=== PATIENT | male | born 1945 | race Caucasian/White ===

== ENCOUNTER 2025-07-29 10:37 | Outpatient (AMB) | payer MEDICARE, OTHER, SELFPAY ==
--- NOTE | 2025-07-29 10:40 | A.OFFVIS_ITS ---
Intake Visit Reasons: 3m Allergies No Known Allergies Allergy (Verified 07/29/25 10:45) Medication List - Last Reconciled 07/29/25 by Abdoulaye Johnson MD acyclovir 200 mg PO TID atorvastatin (Lipitor) 20 mg PO DAILY levothyroxine 175 mcg PO DAILY lisinopril 10 mg PO DAILY metformin 500 mg PO TID pregabalin ER 660 mg PO DAILY HPI Comments Details: 80 yr old man with PHN pain since he developed a right T12- L1 severe case of herpes zoster on 11/11/24 with an extensive rash on his back, right lower abdomen and right upper thigh. The pain level used to be 8/10? for 3-4 times a day and can last 7-8 minutes mostly right L1 area. It is now 0-1/10 and some da ys not at all. He is now able to sleep thru the night. Part of his upper thigh is numb.? He is currently on extended release pregabalin 330 mg twice a day. Review of Systems Const Details: Sleep:? Difficulty getting to sleepdenies.? Difficulty maintaining sleepdenies?.? Urge to move legsdenies.? Teeth grindingdenies.? Shouting or Kicking during sleep denies.? Abnormal behavior during sleepdenies.? Excessive sleepdenies.? Snoring denies.? Daytime sleepinessdenies. ???General/Constitutional:? Change in appetitedenies.? Chillsdenies.? Fatiguedenies.? Feverdenies.? Weight gaindenies.? Weight lossdenies. ???Ophthalmologic:? Blurred visiondenies.? Diminished visual acuitydenies. ???ENT:? Stuffinessdenies.? Decreased hearingdenies.? Dry mouthdenies.? Ear paindenies.? Nosebleeddenies.? Ringing in the earsdenies.? Sinus paindenies.? Sore throat denies.? Swollen glandsdenies. ???Endocrine:? Cold intolerancedenies.? Excessive thirstdenies.? Frequent urinationdenies.? Heat intolerancedenies. ???Respiratory:? Shortness of breathdenies.? Chest paindenies.? Coughdenies. ???Breast:? Breast lumpdenies.? Nipple dischargedenies. ???Cardiovascular:? Chest pain at restdenies.? Chest pain with exertiondenies.? Claudicationdenies .? Dizzinessdenies.? Fluid accumulation in the legsdenies.? Irregular heartbeat denies.? Palpitationsdenies. ???Gastrointestinal:? Abdominal paindenies.? Constipationdenies.? Diarrheadenies.? Difficulty swallowingdenies.? Heartburndenies.? Nauseadenies.? Rectal bleedingdenies. ???Hematology:? Easy bruisingdenies.? Prolonged bleedingdenies. ???Genitourinary:? Frequent urinationdenies.? Urgencydenies.? Incontinencedenies.? Erectile Dysfunctiondenies. ???Musculoskeletal:? Neck paindenies.? Back painadmits.? Muscle achesdenies.? Painful jointsdenies.? Sciaticadenies.? Weaknessdenies. ???Podiatric:? Difficulty walkingdenies.? Foot numbnessdenies. ???Neurologic:? Difficulty swallowingdenies.? Balance difficultydenies.? Coordinationnormal.? Difficulty speakingdenies.? Dizzinessdenies.? Faintingdenies.? Gait abnormality denies.? Headachedenies.? Loss of strengthdenies.? Loss of use of extremity denies.? Low back paindenies.? Memory lossdenies.? Seizuresdenies.? Ticsdenies.? Tingling/Numbnessdenies.? Transient loss of visiondenies.? Tremordenies. ???Psychiatric:? Anxietydenies.? Auditory/visual hallucinationsdenies.? Delusionsdenies.? Depressed mooddenies.? Stressorsdenies.? Substance abusedenies.? Suicidal thoughtsdenies. Physical Exam Neuro Other: Neurological: Abnormal neurological findings:??Extensive pigmented scars of right T12-L1 herpes zoster in the back, lower abdomen, groin? and right upper thigh.?Mental Status:??alert and oriented X 3,?Normal attention, orientation, memory and affect.?Cranial Nerves:??Pupils are equal, round and reactive to light. Fundoscopy shows normal disc bilaterally. External occular muscles are intact. Visual carr are full, no ptosis. Face is symmetrical, no facial weakness or droop. Facial sensations are normal. Tongue protrudes in midline. Palate elevates symmetrically. Shoulder shrugging is normal..?Motor Examination:??Normal muscle tone, bulk and strength,?No atrophy or fasciculations,?No drift of the extended upper extremities,?Deep tendon reflexes are 2+?,?Plantars are flexor?.?Straight Leg Raising:??90 degrees.?Sensory Exam:??Normal light touch, temperature, pinprick, vibration and joint-position sensations?,?Rhomberg sign is absent.?Coordination:??no ataxia,?no titubation,?opzslp-jv-miuj, ysjo-kbbv-xnhw test and rapid alternating movements were normal.?Gait Exam:??Within normal limits.?Cerebellar Signs:??Djrjdh-sc-kvza and qmso-gb-cqyb is normal,?no dysdiadochokinesia?.?Extrapyramidal System:??No tremor, rigidity with normal facial expressions,?No bradykinesia, no bradyphrenia. Normal arm swing and posture. No propulsion or retropulsion.?Speech:??Normal,?no dysphasia or dysarthria..? Mini Mental Status Exam: Level of Consciousness:??Alert.?Orientation:??Knows correct year, month, date, day and season,?Knows correct city, county and state. Knows correct location and floor.?Registration:??Able to register 3 objects.?Attention:??Serial 7's performed accurately.?Recall:??Able to recall 3 out of 3 objects.?Language:??N ormal spontaneous speech, fluency, repetition,naming, comprehension, reading and writing.?Total Score:??30/30.? Assessment & Plan Assessment & Plan (1) Post herpetic neuralgia: Code(s): B02.29 - Other postherpetic nervous system involvement Category: Medical (2) Diabetes mellitus: Code(s): E11.9 - Type 2 diabetes mellitus without complications Category: Medical Plan Taper off Pregabalin over 10 days as instructed. Stop Acyclovir Coding Level of Care Code Est Pt Level 4 (80380) Diagnoses Post herpetic neuralgia B02.29 Diabetes mellitus E11.9
--- OUTSIDE RECORDS SUMMARY | 2025-07-29 14:05 | XMS_ITS | Clinical Summary ---
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 Active coenzyme Q10 (CO Q 10) 100 MG capsule Take 100 mg by mouth. Active dorzolamide-amairani lol (COSOPT) 2-0.5 % ophthalmic solution Administer 1 drop to both eyes 2 times a day. 5 Active levothyroxine (SYNTHROID, LEVOTHROID) 175 MCG tablet Take 175 mcg by mouth. 5 Active lisinopril (PRINIVIL,ZeSTRI L) 10 MG tablet Take 10 mg by mouth. Active LYCOPENE PO Take 1 tablet by mouth. Active Pregabalin ER 330 MG Tablet SR 24 hr Take 1 tablet by mouth 2 times a day. Active metFORMIN (GLUCOPHAGE) 500 MG tablet as directed Orally four a day Active triamcinolone (KENALOG) 0.5 % creamIndications :Insect bite, unspecified site, initial encounter Apply topically 2 (two) times a day. 30 g 5 Active Active Problems No known active problems Encounters Date Type Department Care Team Description 05/10/2025 9:20 AM EDT Office Visit [facility] [address] [place] [address] José Luis Sanchez MD Duncan, Kiersten B, APRN Insect bite, unspecified site, initial encounter (Primary Dx); Cellulitis of skin of back 05/10/2025 Travel from Last 3 Months Social History Tobacco Use Types Packs/Day Years Used Date Smoking Tobacco: Never Assessed Sex and Gender Information Value Date Recorded Sex Assigned at Not on file Legal Sex Male 9:17 AM EDT Gender Identity Not on file Sexual Orientation Not on file Last Filed Vital Signs Vital Sign Reading Time Taken Comments Blood Pressure 125/77 05/10/2025 9:59 AM EDT Pulse 58 05/10/2025 9:59 AM EDT Temperature 37.1 C (98.7 F) 05/10/2025 9:59 AM EDT Respiratory Rate 15 05/10/2025 9:59 AM EDT Oxygen Saturation 98% 05/10/2025 9:59 AM EDT Inhaled Oxygen Concentration - - Weight 104 kg (230 lb) 05/10/2025 9:59 AM EDT Height 185.4 cm (6' 1 ) 05/10/2025 9:59 AM EDT Body Mass Index 30.34 05/10/2025 9:59 AM EDT Plan of Treatment Health Maintenance Due Date Last Done Comments Advance Care Planning 1945 Hepatitis C Virus Screening 1945 DTaP/Tdap/Td Vaccines (1 - Tdap) 1966 Pneumococcal Vaccines 50+ (1 of 1 - PCV) 1997 Zoster (Shingles) Vaccine (1 of 2) 1997 RSV Vaccine 60 years and older and Patients (1 - 1-dose 75+ series) 2022 Influenza Vaccine 06/13/2025 10/13/2024, , 08/13/2022, Additional history exists COVID-19 Vaccine ( season) 2025 08/13/2022, 01/21/2021, 12/30/2020 Hepatitis B Vaccines Aged Out No long er eligible based on patient's age to complete this topic Insurance MEDICARE PART A & B Care Teams National Dedicated Truck Driver Relationship Specialty Start Date End Date Pcp, No PCP - General General Medicine 05/09/25
--- OUTSIDE RECORDS SUMMARY | 2025-07-29 14:05 | XMS_ITS | Encounter Summary ---
Author Organization [facility] Address [address] [place] [address] Phone Care Team Providers Care [employer] Applier Name Role Phone Geoff Cota MD Primary Care Provider U tod Encounter Details Date Type Department Care Team (Late st Contact Info) Description 12/18/2020 Procedure Pass [facility] [address] [place] [place] [address] [place] [address] Social History Tobacco Use Types Packs/Day Years Used Date Smoking Tobacco: Former Cigarettes 1 12 Smokeless Tobacco: Never Alcohol Use Standard Drinks/Week Comments Yes 2 (1 standard drink = 0.6 oz pur e alcohol) Sex and Gender Information Value Date Recorded Sex Assigned at Not on file Legal Sex Male 6:54 PM EST Gender Identity Not on file Sexual Orientation Not on file Occupation Industry Job Start Date Job End Date retired Not on file Not on file Not on file documented as of this encounter Plan of Treatment Not on file documented as of this encounter Visit Diagnoses Not on filedocumented in this encounter Care Teams Bitumastic Applier Relationship Specialty Start Date End Date Geoff Cota MD PCP - General 05/13/14 documented as of this encounter Additional Source Comments The information contained in this document represents components of the legal health record. It is not the complete legal health record.[facility]
--- OUTSIDE RECORDS SUMMARY | 2025-07-29 14:05 | XMS_ITS | Patient Health Record ---
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 Name Role Phone Alfonso Haines Unavailable [phone] Allergies Allergen (clinical drug ingredient) Drug/Non Drug Allergy documented on EMR Reaction Allergy Type Onset Date Status Seasonal (uncoded) Unknown Allergy A ctive Results Component Value Reference Range Notes HEMOGLOBIN A1C (GLYCOHEMOGLO BIN) Reviewed date:04/25/2025 01:22:05 PM Interpretation: Performing Lab: Notes/Report: HEMOGLOBIN A1C % (HH) 7.0 Reason For Referral No Information Medications Medication SIG (Take, Route, Frequency, Duration) Notes Start Date End Date Status Vitamin D 1000 UNIT 1 tablet Orally Once a day; Duration: 30 day(s) Active Extra Depth Orthopedic Shoes (1 Pair) with Customized Heat Molded Multidensity Innersoles (3 Pair) as directed Dx: NIDDM/Polyneuropathy (E11.42), Hammertoe Foot Deformity (M20.41,M20.42), Preulcerative Skin Lesion(s) (L85.1 Active Calcium 600 MG 1 tablet with meals Orally Twice a day; Duration: 30 day(s) Not-Taking Atorvastatin Calcium Active Aspir-81 81 MG 1 tablet Orally Once a day; Duration: 30 day(s) Not-Dereck ing Zolpidem Tartrate No t-Taking Multivitamins as directed Orally Active Lisinopril Active Lipitor 20 MG 1 tablet Orally Once a day; Duration: 30 day(s) Not-Dereck ing Levothyroxine Sodium 200 MCG 1 tablet on an empty stomach in the morning Orally Once a day; Duration: 30 day(s) Active Timolol Maleate Acti ve metFORMIN HCl 500 MG as directed Orally four a day Active Immunizations Vaccine Route Administration Date Status Comme nts Influenza Unknown 09/09/2015 Administered Influenza Unknown 09/08/2016 Administered Influenza Unknown 09/05/2017 Administered Influenza Unknown 08/13/2022 Administered Influenza Unknown 10/13/2024 Administered Pneumococcal Unknown 08/31/2011 Administered COVID-19 Pfizer BioNTech Vaccine Unknown 08/13/2022 Administered 2020,2020 2020,2021 unsure dates Social History Tobacco Use: Social History Observation Description Date Details (start date - stop date) Never Smoker NA - NA Alcohol Screen Question Answer Notes Did you have a drink containing alcohol in the p ast year? No Points 0 Interpretation Negative Tobacco use other than smoking: Question Answer Notes Are you an other tobacco user? No Tobacco Control (Standard) Question Answer Notes Tobacco use: Nonsmoker Additional Findings: Tobacco non-user Current no nsmoker Problems Problem Type SNOMED Code ICD Code Onset Dates Problem Status W/U Status Risk Notes Problem Acquired hammer toe of right foot (2080949792974849 ) Other hammer toe(s) (acquired), right foot (M20.41) Active confirmed Problem Acquired hammer toe of left foot (8961275620391819 ) Other hammer toe(s) (acquired), left foot (M20.42) Active confirmed Problem Polyneuropathy due to type 2 diabetes mellitus (212071316) Type 2 diabetes mellitus with diabetic polyneuropathy (E11.42) Active confirmed Vital Signs Blood pressure diastolic 80 mm Hg 04/25/2025 Height 6 ft 1 in in 04/25/2025 Blood pressure systolic 120 mm Hg 04/25/2025 Weight 230 lbs 04/25/2025 BMI 30.34 kg/m2 04/25/2025 Procedures Procedure Date Ordered Date Performed Result Body Sit e 53554-CWCO SKIN LESIONS, 2 TO 4 04/25/2025 N/A M2958-CRBCAKRX DYSTROPHIC NAILS ANY # 04/25/2025 N/A Encounters Encounter Location Date Provider Diagnosis [facility] [address] [place] [address] 04/25/2025 Alfonso Haines Type 2 diabetes mellitus with diabetic polyneuropathy E11.42 ; Other hammer toe(s) (acquired), right foot M20.41 and Other hammer toe(s) (acquired), left foot M20.42 Assessments Encounter Date Diagnosis (ICD Code) Assessment Notes Treatment Notes Treatment Clinical Notes Section Notes 04/25/2025 Other hammer toe(s) (acquired), right foot (ICD-10 - M20.41) Patient Educated with: DIABETIC FOOT CARE INSTRUCTIONS. pdf (DIABETIC FOOT CARE INSTRUCTIONS. pdf) 04/25/2025 Type 2 diabetes mellitus with diabetic polyneuropathy (ICD-10 - E11.42) 04/25/2025 Other hammer toe(s) (acquired), left foot (ICD-10 - M20.42) Plan Of Treatment Pending Test Test Name Order Date Hemoglobin A1c 05/06/2016 60191-Effd Destruction, 11-2606/22/2021 48739-Yawf Destruction, -04/19/2022 14443-Xuxu Destruction, -01/06/2023 01914-Gftx Destruction, -04/18/2023 66319-KIGM SKIN LESIONS, 2 TO 4 12/15/19 18 26975-KSWW SKIN LESIONS, 2 TO 4 04/23/20 24 67751-IUGD SKIN LESIONS, 2 TO 4 04/25/20 25 J5031-BXNQAMWO DYSTROPHIC NAILS ANY # Q7221-YLCCYEGR DYSTROPHIC NAILS ANY # 28948,S6384-LPD TENDON SHEATH/LIGAMENT 0 06/10/2014 Next Appt Details Provider Name:Alfonso Haines , 08/14/2025 03:30:00 PM, [address], [place] [address], [place], [address], Insurance Providers Payer Name Payer Address Payer Phone Subscriber Number Group Number Insured Name Patient Relationship to Insured Coverage Start Date Coverage End Date Medicare National [facility] [employer] [address] [place] [address] [id number] Daren Eason Self - patient is the insured 2 [address]) [address] [place], [place] [id number] Daren Eason Self - patient is the insured Medical (General) History Medical History History ICD Code Arthritis Back,Hip,and Knee pain Diabetic type ll Glaucoma Thyroid disorder Measles Mumps Chicken pox Joint implants/screws Cholesterol HTN Shingles Surgical History Surgery Date(Month/Year) knee replacement, Right 2007 foot surgery, Posterior Heel, Right 1999 Thumb Surgery 02/2021 prostate biopsy 03/2021 cataract removal 10/2025
--- OUTSIDE RECORDS SUMMARY | 2025-07-29 14:05 | XMS_ITS | Clinical Summary ---
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 4 Active blood-glucose sensor (FreeStyle Valerie 3 Sensor) device 1 Applicator by Does not apply route every 14 days. 4 Active flash glucose scanning reader (FreeStyle Valerie 2 [place]) misc 1 Device by Does not apply route continuous. 2 Active TURMERIC ORAL Take by mouth. A ctive dorzolamide-timolo L (COSOPT) 22.3-6.8 mg/mL ophthalmic solution Administer 1 drop into both eyes 2 (two) times a day. 1 Active vitamin E-safflower oil oil Apply topically. Active B complex tablet Take 1 tablet by mouth 1 (one) time each day. 6 Active KRILL OIL ORAL Take 1 capsule by mouth 1 (one) time each day. Active CHOLECALCIFEROL, VITAMIN D3, ORAL Take by mouth. Active ubidecarenone (COENZYME Q10 ORAL) Take by mouth. 1 tab qd Active azelaic acid (FINACEA) 15 % gel use to area bid Active MULTIVITAMIN ORAL 1 tab daily Active lidocaine (LIDODERM) 5 % patchIndications:H erpes zoster of thigh,Post herpetic neuralgia,Obstruct malika sleep apnea,Primary hypertension,BPH with elevated PSA,Hypothyroidism , unspecified type,Mixed hyperlipidemia Apply 1 patch topically 1 (one) time each day. Apply to painful area 12 hours per day, remove for 12 hours. 30 each 11 5 Active atorvastatin (LIPITOR) 20 mg tablet TAKE 1 TABLET BY MOUTH EVERY DAY 90 tablet 1 5 Active levothyroxine (SYNTHROID, LEVOTHROID) 175 mcg tablet TAKE 1 TABLET BY MOUTH EVERY DAY 90 tablet 3 5 Active valACYclovir (VALTREX) 500 mg tabletIndications: Post herpetic neuralgia Take 1 tab (500 mg) by mouth 2 times 180 tablet 1 5 026 Active carBAMazepine (TEGretol) 200 mg tablet 5 Active lisinopriL (PRINIVIL,ZESTRIL) 10 mg tablet TAKE 1 TABLET BY MOUTH EVERY DAY 90 tablet 1 5 Active pregabalin 330 mg tablet extended release 24 hrIndications:Post herpetic neuralgia Take 1 tablet by mouth 2 (two) times a day. 60 tablet 5 Active Hospital, Clinic, or Other Facility Administered Medication Ordered Dose Route Frequency Start Date End Date Status lidocaine (XYLOCAINE) 1 % injection 0.5 mLIndications:Bilate ral hand pain .5 mL inj Once PRN Procedure 07/11/2025 07/11/2025 Ended lidocaine (XYLOCAINE) 1 % injection 0.5 mLIndications:Bilate ral hand pain .5 mL inj Once PRN Procedure 07/11/2025 07/11/2025 Ended triamcinolone acetonide (KENALOG-40) 40 mg/mL injection 40 mgIndications:Bilate ral hand pain 40 mg IAtc Once PRN Procedure 07/11/2025 07/11/2025 Ended triamcinolone acetonide (KENALOG-40) 40 mg/mL injection 40 mgIndications:Bilate ral hand pain 40 mg IAtc Once PRN Procedure 07/11/2025 07/11/2025 Ended Active Problems Problem Noted Date Diagnosed Date 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 V24, [facility] V28) 03/14/2025 Assessment & Plan (05/26/2025 7:11 AM EDT): -stable Assessment & Plan (03/15/2025 11:40 AM EDT): Orders: Hemoglobin A1c; Future Lipid panel; Future BPH with elevated PSA 11/19/2021 Assessment & Plan (03/15/2025 11:40 AM EDT): -stable Nocturnal hypoxemia 02/10/2021 Obstructive sleep apnea 02/10/2021 Overview (10/07/2024): [facility] Home Sleep Apnea Test: Date 02/02/2021; Wt 245#; BMI 32; LEYDA (AHI) 30, AI 8; HI 21; Unclassified apneas 1; Obstructive apneas 54; Central apneas 1; Mixed apneas 0; hypopneas 128; average oxygen saturation 93% (lowest 61% with saturations <88% for 5% or more of study) - Obstructive Sleep Apnea - severe; mostly hypopneas and obstructive apneas; with sleep related hypoventilation by 2020 home sleep apnea test. Assessment & Plan (03/15/2025 11:40 AM EDT): -referral placed to ENT to perform DISE to establish eligibility for [facility] Orders: CBC and differential; Future Comprehensive metabolic panel; Future Ambulatory referral to Sleep Medicine; Future Ambulatory referral to ENT; Future Insomnia 2019 Hypertension 03/26/2018 Elevated PSA 01/03/2018 Abdominal hernia 02/19/2016 Nodular prostate 10/15/2015 Overview (10/07/2024): Has had biopsy followed by Dr. 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 V24, [facility] V28) 07/27/2011 Benign neoplasm of colon 08/02/2010 Overview (10/07/2024): 5-mm diameter diminutive descending colon polyp removed at colonoscopy 08/02/2010: Tubular adenoma, next colonoscopy indicated 2014. Diverticulitis of colon without hemorrhage 08/02 Overview (10/07/2024): Incidental finding at colonoscopy 08/02/2010. Depression 03/23/2010 Backache 10/10/2006 Overview (10/07/2024): IMO update Hypothyroidism 10/10/2006 Assessment & Plan (03/15/2025 11:40 AM EDT): -stable Orders: Thyroid stimulating hormone with reflex free T4; Future Mixed hyperlipidemia 10/10/2006 Obesity, unspecified 10/10/2006 Encounters Date Type Department Care Team Description 07/11/2025 10:15 AM EDT Consult Orthopedic Surgery - [place] [address] [facility] [address] [place] [address] Kimi Em PA Bilateral hand pain (Primary Dx) 06/19/2025 1:00 PM EDT Office Visit Endocrinology [address] [address] Trish Mark MD Controlled type 2 diabetes mellitus without complication, without long-term current use of insulin ([facility] V24, [facility] V28) (Primary Dx) 06/13/2025 Telephone Adult Medicine [facility] [address] [place] [address] [place]oxanna Moura [place] 05/30/2025 10:30 AM EDT Consult Rehabilitation Medicine - [place] [address] [place] [address] Yanna Red MD Primary osteoarthritis of both first carpometacarpal joints (Primary Dx); Spinal stenosis of lumbar region without neurogenic claudication; Myofascial pain syndrome of lumbar spine 05/23/2025 11:00 AM EDT Office Visit Internal Medicine - [place] [facility] [address] [facility] [address] [place] [phone] Hilton Shin MD Post herpetic neuralgia (Primary Dx); Type 2 diabetes mellitus with diabetic cataract, without long-term current use of insulin ([facility] V24, [facility] V28); Spinal stenosis of lumbar region without neurogenic claudication; Benign paroxysmal positional vertigo due to bilateral vestibular disorder from Last 3 Months Immunizations Name Administration Dates Next Due H1N1 Inj Preservative Free 11/20/2009 Influenza trivalent, 0.5mL ( Fluad) 65yo and older 09/13/2023,08/09/2022,09/01/2021,09/14,08/22/2019,07/31/2018,08/30/2017 ,08/18/2016 Influenza trivalent, 0.5mL, preservative free (Fluarix; FluLaval; Fluzone) ages 6mo and older (Afluria) 3 years and older 08/20/2019,08/05/2008,09/04/2007 Influenza trivalent, with pr eservative (Fluzone; Afluria) 6mo and older 09/09/2015,09/25/2014,08/02/2013,08/01,07/27/2011,08/17/2010,08/11/2009 ,10/10/2006 Pneumococcal conjugate 13 va lent (Prevnar 13, PCV13) 2mo and older 04/15/2015 Pneumococcal polysaccharide 23 valent (Pneumovax 23) 2yo and older 10/11/2012 TD, Adsorbed, Preservative Free 10/10/2006,12/14 Td Tetanus diptheria (Tdvax) 7yo and older 10/10/2006,12/14/1995 Tdap Tetanus diptheria acell ular pertussis (Boostrix; Adacel) 7yo and older 09/02/2016 Zoster Live 10/27/2010 Surgical History Surgery Date Site/Laterality Comments OTHER SURGICAL HISTORY PROCEDURE: HISTORY OTHER; COMMENT: rt knee multiple proceedures OTHER SURGICAL HISTORY PROCEDURE: HISTORY OTHER; COMMENT: 2 arthroscopic left knee surgeries OTHER SURGICAL HISTORY PROCEDURE: HISTORY OTHER; COMMENT: rt achilles surgery dr lovelace TONSILLECTOMY PROCEDURE: HISTORICAL TONSILLECTOMY OTHER SURGICAL HISTORY PROCEDURE: HISTORY OTHER; COMMENT: rt total knee rplacement 2007 COLONOSCOPY 02/12/2004 PROCEDURE: HISTORICAL COLONOSCOPY; COMMENT: Normal OTHER SURGICAL HISTORY 2013 PROCEDURE: HISTORY OTHER; COMMENT: neg prostate bx 2013 COLONOSCOPY 08/11/2015 PROCEDURE: HISTORICAL COLONOSCOPY; COMMENT: 8 mm right colon polyp: Tubular adenoma. COLONOSCOPY 09/30/2020 PROCEDURE: HISTORICAL COLONOSCOPY; COMMENT: Incomplete to the ileocecal valve, possible 3 mm polyp proximal ascending colon. Repeat in 5 years. COLONOSCOPY 08/02/2010 PROCEDURE: HISTORICAL COLONOSCOPY; COMMENT: diverticulosis and diminutive descending colon polyp: tubular adenoma. EYE SURGERY JOINT REPLACEMENT Medical History Medical History Date Comments Mixed hyperlipidemia 10/10/2006 DX:Mixed hy perlipidemia Obesity, unspecified 10/10/2006 DX:Obesity, unspecified Unspecified hypothyroidism 10/10/2006 DX:Un specified hypothyroidism Backache, unspecified 10/10/2006 DX:Backach e, unspecified Impaired fasting glucose 08/05/2008 DX:Impa ired fasting glucose Depression 03/23/2010 DX:Depression Diverticulosis of colon (wit hout mention of hemorrhage) 08/02/2010 DX:Diverticulosis of colon ( without mention of hemorrhage) Benign neoplasm of colon 08/02/2010 DX:Justice gn neoplasm of colon Type II or unspecified type diabetes mellitus without mention of complication, not stated as uncontrolled 07/27/2011 DX:Type II or unspecified ty pe diabetes mellitus without mention of complication, not stated as uncontrolled Glaucoma 10/14/2013 DX:Glaucoma Nodular prostate 10/15/2015 DX:Nodular pros cervantes; COMMENT: Has had biopsy followed by Dr. Zurita Abdominal hernia 02/19/2016 DX:Abdominal he rnia Shingles Anxiety Arthritis Cataract Eczema Hypertension Family History Medical History Relation Name Comments Arthritis Father Haider Duffy Heart disease Father Haider Duffy Stroke Father Haider Duffy Diabetes Father's Sister Meyer Cancer Mother Dominique Eason Colon polyps Mother Dominique Eason younger than 60 yo. Stroke Mother Dominique Eason Hypertension Sister viky st Colon cancer Uncle maternal; > 65 yo. Relation Name Status Comments Brother Alive prostate cancer coronary art stent Father Haider Duffy (Age 82) stroke mi Father's Sister Betsy Mother Dominique Eason (Age 78) stroke Sister viky st Alive Uncle Social History Tobacco Use Types Packs/Day Years Used Date Smoking Tobacco: Former Cigarettes 1.5 14 0 11/21/1965 - 11/13/1979 Smokeless Tobacco: Never Tobacco Cessation:Counseling Given: Not Answered Comments:I haven't touched a cigarette since 11/13/80 Alcohol Use Standard Drinks/Week Comments Not Currently 0 (1 standard drink = 0.6 oz pure alcohol) I might have a social dink once or twice a month Housing Instability Answer Date Recorde d Are you worried that in the next 2 months you may not have stable housing? No 05/19/2025 Food Access & Nutrition Answer Date Rec orded Do you have access to a vari ety of food including fruits and vegetables? Yes 05/19/2025 Access to Healthcare Answer Date Record ed Within the last 3 months, ho w many times did you visit the emergency department for your medical care? 1 05/19/2025 Health Literacy Answer Date Recorded How often do you need to hav e someone help you when you read instructions, pamphlets, or other written material from your doctor or pharmacy? Never 05/19/2025 Caregiver: How often do you need to have someone help you when you read instructions, pamphlets, or other written material from your doctor or pharmacy? Not on file 05/19/2025 Financial Risk Answer Date Recorded How hard is it for you to pa y for the very basics like food, housing, medical care, and air conditioning / heating? Patient declined 05/19/2025 Transportation Answer Date Recorded Has the lack of transportati on kept you from meetings, work, or from getting things needed for daily living? No Has the lack of transportati on kept you from medical appointments or from getting medications? No 05/19/2025 Social Isolation Answer Date Recorded How often do you feel lonely or isolated from those around you? Patient declined 05/19/2025 Food Risk Answer Date Recorded Within the past 12 months we worried whether our food would run out before we got money to buy more. Never true 05/19/2025 Within the past 12 months th e food we bought just didn't last and we didn't have money to get more. Never true 05/19/2025 Dependent Care Answer Date Recorded Do you need help finding or paying for care for your loved ones. For example, children's author or elderly care for an older adult? Patient declined 05/19/2025 Education Answer Date Recorded Do you think completing more education or training, like finishing a GED, going to college, or learning a trade, would be helpful for you? No 05/19/2025 Employment and Income Answer Date Recor ded During the last four weeks, have you been actively looking for work? No 05/19/2025 Living Situation Answer Date Recorded What is your living situation? 0 05/19/2025 Sex and Gender Information Value Date Recorded Sex Assigned at Not on file Legal Sex Male 12:34 AM EST Gender Identity Not on file Sexual Orientation Not on file Obstetrics History Last Filed Vital Signs Vital Sign Reading Time Taken Comments Blood Pressure 126/67 06/19/2025 1:06 PM EDT Pulse 67 06/19/2025 1:06 PM EDT Temperature 35.9 C (96.6 F) 02/21/2025 12:34 PM EDT Respiratory Rate 15 06/19/2025 1:06 PM EDT Oxygen Saturation 99% 05/23/2025 11:27 AM EDT Inhaled Oxygen Concentration - - Weight 107 kg (235 lb 14.3 oz) 07/11/2025 10:13 AM EDT Height 185.4 cm (6' 0.99 ) 07/11/2025 10:13 AM E DT Body Mass Index 31.13 07/11/2025 10:13 AM EDT Plan of Treatment Upcoming Encounters Date Type Department Care Team (Late st Contact Info) Description 08/01/2025 10:30 AM EDT Office Visit Rehabilitation Medicine - [place] [address] [facility] [address] [place] [phone] Yanna Red MD [address] [place] [address] 08/29/2025 10:00 AM EDT Office Visit [facility] - [place] [facility] [address] [place] [phone] Hilton Shin MD [address] [place] [address] Health Maintenance Due Date Last Done Comments Zoster Vaccines (2 of 3) 12/22/2010 10/27/2010 RSV Immunization Adult Patients (1 - 1-dose 75+ series) 2022 Falls Risk Assessment 11/22/2024 11/22/2023 Medicare Annual Wellness Visit 11/22/2024 11/22/2023 COVID-19 Vaccine ( season) 2025 09/14/2024, 09/13/2023, 08/09/2022, Additional history exists Influenza Vaccine (#1) 2025 , 09/14/2024, 09/14/2023, Additional history exists Colorectal Cancer Screening: Colonoscopy 09/30/2025 09/30/2020 Diabetes: Annual Retina Eye Exam 10/21/2025 10/21/2024, 04/24/2024 Diabetes: Blood Sugar Control Test (HGBA1C) 11/20/2025 05/20/2025, 12/02/2024, 08/29/2024, Additional history exists Diabetes: Annual Urine Albumin-Creatinine Ratio (uACR) 12/02/2025 12/02/2024, 08/29/2024 Social Influencers of Health Screening 05/19/2026 05/19/2025 Diabetes: Annual GFR (Glomerular Filtration Rate) 05/20/2026 05/20/2025, 12/02/2024, 08/29/2024, Additional history exists Hypertension/CHF/CAD Annual BMP Blood Test 05/20/2026 05/20/2025, 12/02/2024, 08/29/2024, Additional history exists Diabetes: Annual Foot Exam 06/19/2026 06/19/2025, DTaP,Tdap,and Td Vaccines (5 - Td or Tdap) 09/02/2026 09/02/2016, 10/10/2006, 10/10/2006, Additional history exists Cholesterol Screening (Lipid Panel) 05/20/2030 05/20/2025, 12/02/2024, 08/29/2024, Additional history exists Hepatitis C Screening Completed 04/10/2014 Pneumococcal Vaccine: 50+ Years Completed 04/15/2015, 10/11/2012, 08/31/2011 Depression Screening Completed 05/19/2025, 11/22/19 24 HIB Vaccines Aged Out No longer eligi ble based on patient's age to complete this topic HPV Vaccines Aged Out No longer eligi ble based on patient's age to complete this topic Hepatitis A Vaccines Aged Out No long er eligible based on patient's age to complete this topic Hepatitis B Vaccines Aged Out No long er eligible based on patient's age to complete this topic IPV Vaccines Aged Out No longer eligi ble based on patient's age to complete this topic MMR Vaccines Aged Out No longer eligi ble based on patient's age to complete this topic Meningococcal ACWY Vaccine Aged Out N o longer eligible based on patient's age to complete this topic Meningococcal B Vaccine Aged Out No l onger eligible based on patient's age to complete this topic RSV Immunization Patients Under 20 months Aged Out No longer eligible based on patient's age to complete this topic Varicella Vaccines Aged Out No longer eligible based on patient's age to complete this topic Procedures Procedure Name Priority Date/Time Associated Diagnosis Comments XR HAND 3+ VIEWS BILAT Routine 07/11/2025 10:28 AM EDT Bilateral hand pain MD ARTHROCENTESIS/ASPIRA TION/INJECTION SMALL JOINT/BURSA WO U/S GUIDANCE Routine 07/11/2025 10:15 AM EDT Bilateral hand pain CBC WITH AUTO DIFFERENTIAL Routine 05/20/2025 10:26 AM EDT Obstructive sleep apnea (adult) (pediatric) Fatigue Avitaminosis D Cataract, diabetic (CMS/HCC V24, CMS/HCC V28) Myxedema heart disease COMPREHENSIVE METABOLIC PANEL Routine 05/20/2025 10:26 AM EDT Obstructive sleep apnea (adult) (pediatric) Fatigue Avitaminosis D Cataract, diabetic (CMS/HCC V24, CMS/HCC V28) Myxedema heart disease THYROID STIMULATING HORMONE WITH REFLEX TO FREE T4 AND FREE T3 Routine 05/20/2025 10:26 AM EDT Obstructive sleep apnea (adult) (pediatric) Fatigue Avitaminosis D Cataract, diabetic (CMS/HCC V24, CMS/HCC V28) Myxedema heart disease HEMOGLOBIN A1C Routine 05/20/2025 10:26 AM EDT Obstructive sleep apnea (adult) (pediatric) Fatigue Avitaminosis D Cataract, diabetic (CMS/HCC V24, CMS/HCC V28) Myxedema heart disease LIPID PANEL WITH REFLEX TO DIRECT LDL Routine 05/20/2025 10:26 AM EDT Obstructive sleep apnea (adult) (pediatric) Fatigue Avitaminosis D Cataract, diabetic (CMS/HCC V24, CMS/HCC V28) Myxedema heart disease VITAMIN D 25 HYDROXY Routine 05/20/2025 10:26 AM EDT Obstructive sleep apnea (adult) (pediatric) Fatigue Avitaminosis D Cataract, diabetic (CMS/HCC V24, CMS/HCC V28) Myxedema heart disease VITAMIN B12 AND FOLATE Routine 05/20/2025 10:26 AM EDT Obstructive sleep apnea (adult) (pediatric) Fatigue Avitaminosis D Cataract, diabetic (CMS/HCC V24, CMS/HCC V28) Myxedema heart disease FERRITIN Routine 05/20/2025 10:26 AM EDT Obstructive sleep apnea (adult) (pediatric) Fatigue Avitaminosis D Cataract, diabetic (CMS/HCC V24, CMS/HCC V28) Myxedema heart disease IRON AND TIBC Routine 05/20/2025 10:26 AM EDT Obstructive sleep apnea (adult) (pediatric) Fatigue Avitaminosis D Cataract, diabetic (CMS/HCC V24, CMS/HCC V28) Myxedema heart disease CBC AND DIFFERENTIAL Routine 05/20/2025 10:26 AM EDT Obstructive sleep apnea (adult) (pediatric) Fatigue Avitaminosis D Cataract, diabetic (CMS/HCC V24, CMS/HCC V28) Myxedema heart disease MICROALBUMIN CREATININE URINE RATIO Routine 12/02/2024 2:07 PM EST Herpes zoster of thigh Post herpetic neuralgia Obstructive sleep apnea Primary hypertension BPH with elevated PSA Hypothyroidism, unspecified type Mixed hyperlipidemia DIABETES EYE EXAM Routine 04/24/2024 DIABETES FOOT EXAM Routine 04/23/2024 DEPRESSION SCREENING Routine 11/22/2023 FALLS RISK ASSESSMENT Routine 11/22/2023 COLONOSCOPY Routine 09/30/2020 HEPATITIS C SCREENING Routine 04/10/2014 from Last 3 Months or Most Recently Relevant to Health Maintenance Results * XR Hand 3+ Views bilat (07/11/2025 10:28 AM EDT) Anatomical Region Laterality Modality Upper Extremities, Hand Bilateral Computed Radiography Narrative 07/11/2025 12:35 PM EDT Date of Visit:07/11/2025 Reason for visit: Bilateral hand and thumb pain Views: AP, lateral, oblique bilateral hands Comparison: None Findings: Diffuse osteoarthritis periarticular osteopenia. Moderate bilateral thumb basal joint arthritis with osteophyte formation subchondral bone cyst mild subluxation Impression: Moderate bilateral thumb basal joint arthritis us Kimi CONRAD IMG XR PROCEDURES Final Resul t * MD ARTHROCENTESIS/ASPIRATION/INJECTION SMALL JOINT/BURSA WO U/S GUIDANCE (07/11/2025 10:15 AM EDT) Narrative Kimi Em PA - 07/11/2025 10:15 AM EDT ANAMARIA Gaspar 07/11/2025 12:38 PM Hand / UE Inj/Asp: bilateral thumb CMC for osteoarthritis Details: 25 G needle, dorsal approach Medications (Right): 0.5 mL lidocaine 1 %; 40 mg triamcinolone acetonide 40 mg/mL Medications (Left): 0.5 mL lidocaine 1 %; 40 mg triamcinolone acetonide 40 mg/mL Risks of infection, thinning of the skin and temporary skin discoloration discussed. Discussed risks of temporary increased pain after injection and swelling and mild redness at injection site for couple days. Explained occasionally cortisone injection can cause facial flushing temporarily. Benefits pain management. For postop injection pain ice, Tylenol and/or NSAIDs if patient can take Informed Consent: Laterality: Bilateral Relevant images/test results available and reviewed: yes Health status cleared: Yes Procedure/treatment, purpose, treatment alternatives, risks/potential complications and benefits explained: yes Risk/complications/benefits details: Risks of infection, thinning of the skin and temporary skin discoloration discussed. Discussed risks of temporary increased pain after injection and swelling and mild redness at injection site for couple days. Explained occasionally cortisone injection can cause facial flushing temporarily. Benefits pain management. For postop injection pain ice, Tylenol and/or NSAIDs if patient can take Patient questions answered: yes Patient agrees, verbalizes understanding, and wants to proceed: yes Consent given by: Patient Informed consent discussion completed by Physician/HERRERA with patient: Verbal Pre-procedure timeout performed: yes us Kimi CONRAD IN CLINIC/BEDSIDE ORDERABLES Final Result * Thyroid stimulating hormone with reflex to free t4 and free t3 (05/20/2025 10:26 AM EDT) TSH 1.06 0.40 - 4.00 mcIU/mL LAB CHEMISTRY METHOD 05/20/2025 1:18 PM EDT [facility] Blood Venous blood specimen / Unknown Venipuncture / Unknown 05/20/2025 10:26 AM EDT 05/20/2025 10:26 AM EDT us Hilton Shin MD LAB BLOOD ORDERABLES Final R esult [facility] [address] [place] [address], [place] [phone] * (ABNORMAL) Vitamin B12 and folate (05/20/2025 10:26 AM EDT) Vitamin B-12 818 250 - 900 pcg/mL LAB CHEMISTRY METHOD 05/20/2025 12:36 PM EDT [facility] Folate >20.0(H) 2.8 - 17.0 ng/ml LAB CHEMISTRY METHOD 05/20/2025 12:36 PM [facility] Blood Venous blood specimen / Unknown Venipuncture / Unknown 05/20/2025 10:26 AM EDT 05/20/2025 10:26 AM EDT Hilton Shin MD LAB BLOOD ORDERABLES Final R esult [facility] [address] [place] [address], [place] [phone] * Lipid panel with reflex to direct LDL (05/20/2025 10:26 AM EDT) Cholesterol 147 0 - 200 mg/dL LAB CHEMISTRY METHOD 05/20/2025 12:13 PM [facility] Triglycerides 93 0 - 150 mg/dL LAB CHEMISTRY METHOD 05/20/2025 12:13 PM [facility] HDL 55 >=40 mg/dL LAB CHEMISTRY METHOD 05/20/2025 12:13 PM [facility] LDL Calculated 73 0 - 100 mg/dL LAB CHEMISTRY METHOD 05/20/2025 12:13 PM [facility] VLDL Cholesterol Dominguez 18.6 mg/dL LAB CHEMISTRY METHOD 05/20/2025 12:13 PM [facility] Non HDL Chol. (LDL+VLDL) 92 <145 mg/dL LAB CHEMISTRY METHOD 05/20/2025 12:13 PM [facility] Chol/HDL Ratio 2.7 0.0 - 4.4 LAB CHEMISTRY METHOD 05/20/2025 12:13 PM [facility] Blood Venous blood specimen / Unknown Venipuncture / Unknown 05/20/2025 10:26 AM EDT 05/20/2025 10:26 AM EDT us Hilton Shin MD LAB BLOOD ORDERABLES Final R esult [facility] [address] [place] [address], [place] [phone] * (ABNORMAL) CBC auto differential (05/20/2025 10:26 AM EDT) WBC 4.6(L) 4.8 - 10.8 K/mcL LAB HEMETOLOGY METHOD 05/20/2025 12:33 PM EDT [facility] RBC 3.80(L) 4.50 - 5.50 M/mcL LAB HEMETOLOGY METHOD 05/20/2025 12:33 PM EDT [facility] Hemoglobin 12.2(L) 13.5 - 17.5 g/dL LAB HEMETOLOGY METHOD 05/20/2025 12:33 PM EDT [facility] Hematocrit 36.9(L) 42.0 - 54.0 % LAB HEMETOLOGY METHOD 05/20/2025 12:33 PM EDT [facility] MCV 96.3 79.0 - 98.0 FL LAB HEMETOLOGY METHOD 05/20/2025 12:33 PM EDT [facility] MCH 31.9 27.0 - 32.0 pcg LAB HEMETOLOGY METHOD 05/20/2025 12:33 PM EDT [facility] MCHC 33.1 32.0 - 37.0 g/dL LAB HEMETOLOGY METHOD 05/20/2025 12:33 PM EDT [facility] RDW 13.0 11.0 - 15.0 % LAB HEMETOLOGY METHOD 05/20/2025 12:[facility] Platelets 129(L) 130 - 400 K/mcL LAB HEMETOLOGY METHOD 05/20/2025 12:33 PM EDT [facility] MPV 11.4(H) 7.0 - 11.0 FL LAB HEMETOLOGY METHOD 05/20/2025 12:33 PM EDT [facility] NRBC 0.0 <1.0 % LAB HEMETOLOGY METHOD 05/20/2025 12:33 [facility] NRBC Absolute 0.00 <0.10 K/mcL LAB HEMETOLOGY METHOD 05/20/2025 12:33 PM EDT [facility] Neutrophils Relative 54.8 % LAB HEMETOLOGY METHOD 05/20/2025 12:33 PM EDT [facility] Lymphocytes Relative 31.8 % LAB HEMETOLOGY METHOD 05/20/2025 12:33 PM [facility] Monocytes Relative 8.9 % LAB HEMETOLOGY METHOD 05/20/2025 12:33 PM [facility] Eosinophils Relative 3.2 % LAB HEMETOLOGY METHOD 05/20/2025 12:33 PM [facility] Basophils Relative 0.9 % LAB HEMETOLOGY METHOD 05/20/2025 12:33 PM [facility] Immature Granulocytes Relative 0.4 % LAB HEMETOLOGY METHOD 05/20/2025 12:33 PM [facility] Neutrophils Absolute 2.53 1.50 - 7.00 K/mcL LAB HEMETOLOGY METHOD 05/20/2025 12:33 PM EDT [facility] Lymphocytes Absolute 1.47 1.00 - 5.00 K/mcL LAB HEMETOLOGY METHOD 05/20/2025 12:33 PM EDT [facility] Monocytes Absolute 0.41 0.20 - 1.00 K/mcL LAB HEMETOLOGY METHOD 05/20/2025 12:33 PM [facility] Eosinophils Absolute 0.15 0.00 - 0.50 K/mcL LAB HEMETOLOGY METHOD 05/20/2025 12:33 PM EDT [facility] Basophils Absolute 0.04 0.00 - 0.20 K/[facility] HEMETOLOGY METHOD 05/20/2025 12:33 PM EDT [facility] Immature Granulocytes Absolute 0.02 0.00 - 0.03 K/[facility] LAB HEMETOLOGY METHOD 05/20/2025 12:33 PM EDT [facility] Blood Venous blood specimen / Unknown Venipuncture / Unknown 05/20/2025 10:26 AM EDT 05/20/2025 10:26 AM EDT us Hilton Shin MD LAB BLOOD ORDERABLES Final R esult Performing Organization Address City/[facility]/ZIP Co de Phone Number [facility] [address] [place] [address], [place] [phone] * Iron and TIBC (05/20/2025 10:26 AM EDT) Iron 86 50 - 160 mcg/dL LAB CHEMISTRY METHOD 05/20/2025 12:36 PM EDT [facility] TIBC 284 250 - 450 mcg/dL LAB CHEMISTRY METHOD 05/20/2025 12:36 PM EDT [facility] Iron Saturation 30 20 - 50 % LAB CHEMISTRY METHOD 05/20/2025 12:36 PM EDT [facility] Blood Venous blood specimen / Unknown Venipuncture / Unknown 05/20/2025 10:26 AM EDT 05/20/2025 10:26 AM EDT us Hilton Shin MD LAB BLOOD ORDERABLES Final R esult [facility] [address] [place] [address], [place] [phone] * Vitamin D 25 hydroxy (05/20/2025 10:26 AM EDT) Pathologist [facility] Vit D, 25-Hydroxy 43.9 30.0 - 80.0 ng/mL LAB CHEMISTRY METHOD 05/20/2025 1:18 PM EDT [facility] Blood Venous blood specimen / Unknown Venipuncture / Unknown 05/20/2025 10:26 AM EDT 05/20/2025 10:26 AM EDT us Hilton Shin MD LAB BLOOD ORDERABLES Final R esult Performing Organization Address City/[facility] Co de Phone Number [facility] [address] [place] [address], [place] [phone] * (ABNORMAL) Hemoglobin A1c (05/20/2025 10:26 AM EDT) [facility] Hemoglobin A1C 7.0(H) <6.5 % LAB CHEMISTRY METHOD 05/20/2025 2:15 PM EDT [facility] Mean Bld Glu Estim. 154 mg/dL LAB CHEMISTRY METHOD 05/20/2025 2:15 PM EDT [facility] Blood Venous blood specimen / Unknown Venipuncture / Unknown 05/20/2025 10:26 AM EDT 05/20/2025 10:26 AM EDT us Hilton Shin MD LAB BLOOD ORDERABLES Final R esult [facility] [address] [place] [address], [place] [phone] * Ferritin (05/20/2025 10:26 AM EDT) [facility] Ferritin 92 26 - 388 ng/mL LAB CHEMISTRY METHOD 05/20/2025 12:36 PM EDT [facility] Blood Venous blood specimen / Unknown Venipuncture / Unknown 05/20/2025 10:26 AM EDT 05/20/2025 10:26 AM EDT us Hilton Shin MD LAB BLOOD ORDERABLES Final R esult [facility] [address] [place] [address], * (ABNORMAL) Comprehensive metabolic panel (05/20/2025 10:26 AM EDT) Sodium 139 133 - 145 mmol/L LAB CHEMISTRY METHOD 05/20/2025 12:36 PM T [facility] Potassium 5.2 3.5 - 5.5 mmol/L LAB CHEMISTRY METHOD 05/20/2025 12:36 PM [facility] Chloride 107 96 - 110 mmol/L LAB CHEMISTRY METHOD 05/20/2025 12:36 PM [facility] CO2 30 21 - 32 mmol/L LAB CHEMISTRY METHOD 05/20/2025 12:36 PM [facility] Anion Gap 2(L) 3 - 11 LAB CHEMISTRY METHOD 05/20/2025 12:36 PM [facility] Glucose 145(H) 70 - 100 mg/dL LAB CHEMISTRY METHOD 05/20/2025 12:36 PM [facility] BUN 19 5 - 25 mg/dL LAB CHEMISTRY METHOD 05/20/2025 12:36 PM [facility] Creatinine 0.86 0.70 - 1.30 mg/dL LAB CHEMISTRY METHOD 05/20/2025 12:36 PM [facility] eGFR 89 >=60 mL/min/1. 73m2 LAB CHEMISTRY METHOD 05/20/2025 12:36 PM [facility] Comment:Calculation based on the Chronic Kidney Disease Epidemiology Collaboration (CKD-EPI) equation refit without adjustment for race. BUN/Creatinine Ratio 22.1 LAB CHEMISTRY METHOD 05/20/2025 12:36 PM [facility] Calcium 9.4 8.5 - 10.5 mg/dL LAB CHEMISTRY METHOD 05/20/2025 12:36 PM EDT [facility] AST (SGOT) 13 10 - 42 unit/L LAB CHEMISTRY METHOD 05/20/2025 12:36 PM EDT [facility] ALT (SGPT) 21 10 - 60 unit/L LAB CHEMISTRY METHOD 05/20/2025 12:36 PM EDT [facility] Alkaline Phosphatase 63 42 - 121 unit/L LAB CHEMISTRY METHOD 05/20/2025 12:36 PM EDT [facility] Total Protein 6.9 6.0 - 8.0 g/dL LAB CHEMISTRY METHOD 05/20/2025 12:36 PM EDT [facility] Albumin 4.1 3.2 - 5.0 g/dL LAB CHEMISTRY METHOD 05/20/2025 12:36 PM EDT [facility] Total Bilirubin 0.6 0.0 - 1.4 mg/dL LAB CHEMISTRY METHOD 05/20/2025 12:36 PM EDT [facility] Blood Venous blood specimen / Unknown Venipuncture / Unknown 05/20/2025 10:26 AM EDT 05/20/2025 10:26 AM EDT us Hilton Shin MD LAB BLOOD ORDERABLES Final R esult [facility] [address] [place] [address], * Microalbumin creatinine urine ratio (12/02/2024 2:07 PM EST) Creatinine, Urine 70.0 mg/dL LAB CHEMISTRY METHOD 12/02/2024 5:07 PM EST [facility] Microalb, Ur 13.9 0.0 - 29.0 mg/L LAB CHEMISTRY METHOD 12/02/2024 5:07 PM EST [facility] Microalb/Creat Ratio 20 <30 mg/g creat LAB CHEMISTRY METHOD 12/02/2024 5:07 PM EST [facility] Urine Urine specimen obtained by clean catch procedure / Unknown Non-blood Collection / Unknown 12/02/2024 2:07 PM EST 12/02/2024 2:07 PM EST [facility] LAB URINE ORDERABLES Sherrie l Result [facility] [address] [place] [address], [place] [phone] * Diabetes Eye Exam (04/24/2024) [facility] Diabetes: Annual Retina Eye Exam Abstracted Result [facility] Provider HEALTH MAINTENANCE Final Result * Diabetes Foot Exam (04/23/2024) [facility] Diabetes: Annual Foot Exam Abstracted [facility] Provider HEALTH MAINTENANCE Final Result * Falls Risk Assessment (11/22/2023) [facility] Falls Risk Assessment Abstracted [facility] Provider HEALTH MAINTENANCE Final Result * Depression Screening (11/22/2023) [facility] Depression Screening Abstracted Result [facility] Provider HEALTH MAINTENANCE Final Result * Colonoscopy (09/30/2020) [facility] Colonoscopy Abstracted, Positive Anatomical Region Laterality Modality Other Historical Provider HEALTH MAINTENANCE Final Result * Hepatitis C Screening (04/10/2014) [facility] Hepatitis C Screening Abstracted Historical Provider HEALTH MAINTENANCE Final Result from Last 3 Months or Most Recently Relevant to Health Maintenance Insurance MEDICARE UN[employer]ARE Care Teams Vrt Mechanic Relationship Specialty Start Date End Date Hilton Shin MD [address] [facility] [address] [place] [address] PCP - General Internal Medicine 03/14/25
--- OUTSIDE RECORDS SUMMARY | 2025-07-29 14:05 | XMS_ITS | Encounter Summary ---
Author Organization [facility] Address [address] [place] [id number] Phone Care Team Providers Care Sample Tailor Name Role Phone Geoff Cota MD Primary Care Provider U tod Encounter Details Date Type Department Care Team (Late st Contact Info) Description 01/03/2018 Procedure [facility] [address] [place] [address] Social History Tobacco Use Types Packs/Day Years [...] on filedocumented in this encounter Care Teams Sample Tailor Relationship Specialty Start Date End Date Geoff Cota MD PCP - General 05/13/14 documented as of this encounter Additional Source Comments The information contained in this document represents components of the legal health record. It is not the complete legal health record.[facility]
--- OUTSIDE RECORDS SUMMARY | 2025-07-29 14:05 | XMS_ITS ---
Author Name [facility] Organization Unknown History of Medication Use Medication Directions Dispensed Refills Start Date End Date Stat valACYclovir (VALTREX) 500 mg tablet Take 1 tab (500 mg) by mouth 2 times 05/23/2025 active pregabalin 330 mg tablet extended release 24 hr TAKE 1 TABLET BY MOUTH TWICE A DAY 05/19/2025 active doxycycline (VIBRAMYCIN) 100 MG capsule Take 1 capsule (100 mg total) by mouth 2 (two) times a day. 05/10/2025 active triamcinolone (KENALOG) 0.5 % cream Apply topically 2 (two) times a day. 05/10/2025 active carBAMazepine (TEGretol) 200 mg tablet TAKE 1/2 TAB 3 TIMES A DAY FOR 1 WEEK THEN 1 TAB THREE TIMES A DAY BY MOUTH DIRECTED 30 DAYS 05/06/2025 active dorzolamide-timolol (COSOPT) 2-0.5 % ophthalmic solution Administer 1 drop to both eyes 2 times a day. 05/04/2025 active pregabalin 330 mg tablet extended release 24 hr Take 330 mg by mouth 2 (two) times a day. Max Daily Amount: 660 mg 03/14/2025 active levothyroxine (SYNTHROID, LEVOTHROID) 175 mcg tablet TAKE 1 TABLET BY MOUTH EVERY DAY 02/24/2025 active levothyroxine (SYNTHROID, LEVOTHROID) 175 MCG tablet Take 175 mcg by mouth. 02/24/2025 active pregabalin (LYRICA) 150 mg capsule Take 1 capsule (150 mg total) by mouth 4 (four) times a day. Max Daily Amount: 600 mg 02/21/2025 03/14/2025 aborted cyclobenzaprine (FLEXERIL) 10 mg tablet Take 1 tablet (10 mg total) by mouth at bedtime as needed for muscle spasms. 02/21/2025 active atorvastatin (LIPITOR) 20 mg tablet TAKE 1 TABLET BY MOUTH EVERY DAY 02/17/2025 active Lipitor 20 MG tablet 1 tablet Orally Once a day; Duration: 30 day(s) 02/17/2025 active gabapentin (NEURONTIN) 300 mg capsule Take 1 capsule (300 mg total) by mouth 3 (three) times a day. 02/06/2025 03/14/2025 aborted lisinopriL (PRINIVIL,ZESTRIL) 10 mg tablet TAKE 1 TABLET BY MOUTH EVERY DAY 12/25/2024 active lidocaine (LIDODERM) 5 % patch Apply 1 patch topically 1 (one) time each day. Apply to painful area 12 hours per day, remove for 12 hours. 12/02/2024 active famciclovir (FAMVIR) 500 mg tablet Take 1 tablet (500 mg total) by mouth every 8 (eight) hours. for 7 days 11/10/2024 active metFORMIN XR (GLUCOPHAGE-XR) 500 mg 24 hr tablet Take 2 tablets (1,000 mg total) by mouth 2 (two) times a day. 08/30/2024 active blood-glucose sensor ([employer] Valerie 3 Sensor) device 1 Applicator by Does not apply route every 14 days. 04/28/2022 active dorzolamide-timoloL (COSOPT) 22.3-6.8 mg/mL ophthalmic solution Administer 1 drop into both eyes 2 (two) times a day. 07/02/2021 active B complex tablet Take 1 tablet by mouth 1 (one) time each day. 09/02/2016 active aspirin 81 mg EC tablet 1 TABLET DAILY active azelaic acid (FINACEA) 15 % gel use to area bid active coenzyme Q10 (CO Q 10) 100 MG capsule Take 100 mg by mouth. active KRILL OIL ORAL Take 1 capsule by mouth 1 (one) time each day. active lisinopril (PRINIVIL,ZeSTRIL) 10 MG tablet Take 10 mg by mouth. active LYCOPENE PO Take 1 tablet by mouth. active metFORMIN (GLUCOPHAGE) 500 MG tablet as directed Orally four a day active Pregabalin ER 330 MG Tablet SR 24 hr Take 1 tablet by mouth 2 times a day. active vitamin B complex (b complex vitamins) capsule Take 1 capsule by mouth. active Allergies Allergen Reaction Severity Comment Documented Date Source Statu s SODIUM HYALURONATE RASH Rash afte r injection into knee 08/05/2008 [facility] active Problems Problem Status Onset Date Problem Type Date of Resolution Source Hypothyroidism active 2006-10-10 ProblemAct [facility] Depression active 2010-03-23 ProblemAct [facility] Diverticulitis of colon without hemorrhage active 2010-08-02 ProblemAct [facility] Insomnia active 2019 ProblemAct [facility] Lumbar spondylosis active 2012-02-29 ProblemAct [facility] Mixed hyperlipidemia active 2006-10-10 ProblemAct [facility] Abdominal hernia active 2016-02-19 ProblemAct C [facility] Primary osteoarthritis of both first carpometacarpal joints active EncounterDiagnosisAct [facility] AMIR[facility] 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 ProblemAct [facility] Elevated PSA active 2018-01-03 ProblemAct [facility] Benign neoplasm of colon active 2010-08-02 ProblemAct [facility] Controlled diabetes mellitus type II without complication ([facility] V24, [facility] V28) active 2011-07-27 ProblemAct [facility] Glaucoma active 2013-10-14 ProblemAct [facility] Obesity, unspecified active 2006-10-10 ProblemAct [facility] Spinal stenosis of lumbar region without neurogenic claudication active EncounterDiagnosisAct [facility] Nodular prostate active 2015-10-15 ProblemAct C T_[facility] 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-06-10 ProblemAct [facility] Nocturnal hypoxemia active 2021-02-10 ProblemAct [facility] Hypertension active 2018-03-26 ProblemAct [facility] BPH with elevated PSA active 2021-11-19 ProblemAct [facility] Type 2 diabetes mellitus with diabetic cataract, without long-term current use of insulin (CMS/HCC V24, [facility] V28) active 2025-03-14 ProblemAct [facility] Myofascial pain syndrome of lumbar spine active EncounterDiagnosisAct [facility] Backache active 2006-10-10 ProblemAct [facility] Obstructive sleep apnea active 2021-02-10 ProblemAct [facility] Dislocation of sternoclavicular joint, closed active 2015-06-10 ProblemAct [facility] Insect bite, unspecified site, initial encounter active EncounterDiagnosisAct [facility] Cellulitis of skin of back active EncounterDiagnosisAct [facility] Immunizations Vaccine Date Source Lot Number Status Influenza trivalent, 0.5mL ( Fluad) 65yo and older 09/13/2023 [facility] [id number] completed Influenza trivalent, 0.5mL ( Fluad) 65yo and older 08/09/2022 [facility] [id number] completed Influenza trivalent, 0.5mL ( Fluad) 65yo and older 09/01/2021 [facility] [id number] completed Influenza trivalent, 0.5mL ( Fluad) 65yo and older 09/14/2020 [facility] [id number] completed Influenza trivalent, 0.5mL ( Fluad) 65yo and older 08/22/2019 [facility] [id number] completed Influenza trivalent, 0.5mL, preservative free (Fluarix; FluLaval; Fluzone) ages 6mo and older (Afluria) 3 years and older 08/20/2019 [facility] completed Influenza trivalent, 0.5mL ( Fluad) 65yo and older 07/31/2018 [facility] [id number] completed Influenza trivalent, 0.5mL ( Fluad) 65yo and older 08/30/2017 [facility] [id number] completed Tdap Tetanus diptheria acell ular pertussis (Boostrix; Adacel) 7yo and older 09/02/2016 [facility] [id number] completed Influenza trivalent, 0.5mL ( Fluad) 65yo and older 08/18/2016 [facility] [id number] completed Influenza trivalent, with pr eservative (Fluzone; Afluria) 6mo and older 09/09/2015 [facility] [id number] completed Pneumococcal conjugate 13 va lent (Prevnar 13, PCV13) 2mo and older 04/15/2015 [facility] [id number] complet ed Influenza trivalent, with pr eservative (Fluzone; Afluria) 6mo and older 09/25/2014 [facility] completed Influenza trivalent, with pr eservative (Fluzone; Afluria) 6mo and older 08/02/2013 [facility] [id number] completed Pneumococcal polysaccharide 23 valent (Pneumovax 23) 2yo and older 10/11/2012 [facility] [id number] com pleted Influenza trivalent, with pr eservative (Fluzone; Afluria) 6mo and older 08/01/2012 [facility] [id number] completed Influenza trivalent, with pr eservative (Fluzone; Afluria) 6mo and older 07/27/2011 [facility] [id number] completed Zoster Live 10/27/2010 [facility] [id number] completed Influenza trivalent, with pr eservative (Fluzone; Afluria) 6mo and older 08/17/2010 [facility] completed H1N1 Inj Preservative Free 11/20/2009 [facility] [id number] completed Influenza trivalent, with pr eservative (Fluzone; Afluria) 6mo and older 08/11/2009 [facility] [id number] completed Influenza trivalent, 0.5mL, preservative free (Fluarix; FluLaval; Fluzone) ages 6mo and older (Afluria) 3 years and older 08/05/2008 [facility] [id number] completed Influenza trivalent, 0.5mL, preservative free (Fluarix; FluLaval; Fluzone) ages 6mo and older (Afluria) 3 years and older 09/04/2007 [facility] [id number] completed Influenza trivalent, with pr eservative (Fluzone; Afluria) 6mo and older 10/10/2006 [id number] completed Td Tetanus diptheria (Tdvax) 7yo and older 10/10/2006 [facility]_T HS[facility] [id number] completed TD, Adsorbed, Preservative Free 10/10/2006 [facility] completed Td Tetanus diptheria (Tdvax) 7yo and older 12/14/1995 [facility]_T HS[facility]AN completed TD, Adsorbed, Preservative Free 12/14/1995 [facility] completed Encounters Encounter Type Encounter Reason Primary Diagnosis Location Date Ambulatory Back Pain Bilateral primar y osteoarthritis of first carpometacarpal [place] [facility] [place] Ambulatory Follow-up Other postherpet ic nervous system involvement [facility] 05/23/2025 Ambulatory Other Other [place] [employer] 05/10/2025 Ambulatory Establish Care Type 2 diabetes mellitus with diabetic cataract ([facility] V24, [facility] V28) [facility] 03/14/2025 Care Team Organization Name Specialty Phone Email Start Date End Da te [facility] 07/02/2025 [employer] 05/10/2025 06/08/2025 [place] [employer] 05/10/[address] [facility] Marcos [facility]line [facility] 03/14/[address] [facility] EMERY ZAPIEN Primary Care 03/14/[address] [facility] Mar[facility]line [facility] 03/14/2025 [facility] Marocs Kline [facility] 09/20/2022
--- OUTSIDE RECORDS SUMMARY | 2025-07-29 14:06 | XMS_ITS | Clinical Summary ---
Author Organization [facility] Address [address] [address] Phone Care Team Providers Care Straight Cutter Name Role Phone Geoff Cota MD Primary Care Provider U navailable Allergies Active Allergy Reactions Criticality Noted Date Comments Sodium Hyaluronate (Viscosup) Rash Low 2022 Medications levothyroxine (SYNTHROID, LEVOTHROID) 200 MCG tablet Take 200 mcg by mouth every morning. Active metFORMIN (GLUCOPHAGE) 500 MG tablet Take 500 mg by mouth 2 (two) times a day with meals. Active atorvastatin (LIPITOR) 20 MG tablet Take 20 mg by mouth daily. Active aspirin 81 MG EC tablet Take 81 mg by mouth daily. Active multivitamins with minerals- folic acid-lycopene (MEN'S ONE-A-DAY) 400-20-300 mcg Tab Take 1 tablet by mouth daily. Active coenzyme Q10 100 mg capsule Take 100 mg by mouth daily. Active b complex vitamins capsule Take 1 capsule by mouth daily. Active ascorbic acid, vitamin C, (VITAMIN C) 500 MG tablet Take 500 mg by mouth daily. Active TURMERIC ROOT EXTRACT ORAL Take by mouth. Ac tive tadalafil (CIALIS, ADCIRCA) 20 MG tablet Take 1 tablet (20 mg total) by mouth daily as needed. 10 tablet 5 9 Active amoxicillin (AMOXIL) 500 MG capsule Take 2,000mg one hour prior to dental procedure 20 capsule 5 0 Active dorzolamide-alia oloL (COSOPT) 22.3-6.8 mg/mL ophthalmic solution 1 drop 2 (two) times a day. 3 Active lisinopril (PRINIVIL,ZESTR IL) 10 MG tablet Take 1 tablet by mouth every morning. 3 Active Active Problems Problem Noted Date Diagnosed Date Elevated PSA 01/03/2018 Type 2 diabetes mellitus 01/03/2018 Lumbar spondylosis 02/29/2012 Overview (01/02/2015): Lumbar spondylosis Immunizations Immunization Administration Dates Next Due COVID-19 (Pre-09/04) Pfizer Vaccine, mRNA, PF 01/21/2021,12/30/2020 Flu H1n1 Tiv Preservative Free 11/20/2009 INFLUENZA, SPLIT VIRUS, TRIV ALENT W/ PRESERVATIVE IM 09/09/2015,09/25/2014,08/02/2013,08/01,07/27/2011,08/17/2010,08/11/2009 ,08/05/2008,09/04/2007,10/10/2006 Influenza High-Dose Trivalen t Preservative Free IM 09/14/2020,08/22/2019,07/31/2018,08/30,08/18/2016 Pneumococcal conjugate PCV13 04/15/2015 Pneumococcal polysaccharide PPSV23 10/11/2012 Td (adult),2 Lf Tetanus Toxo id, PF, Adsorbed 10/10/2006,12/14/1995 Tdap 09/02/2016 Zoster live 10/27/2010 Family History Medical History Relation Comments Prostate cancer Brother Relation Status Comments Brother Alive Social History Tobacco Use Types Packs/Day Years Used Date Smoking Tobacco: Former Cigarettes 1 12 Smokeless Tobacco: Never Tobacco Cessation:Counseling Given: Not Answered Alcohol Use Standard Drinks/Week Comments Yes 2 (1 standard drink = 0.6 oz pur e alcohol) Education Answer Date Recorded Are you interested in more education? Not on briana e 03/11/2023 Are you concerned about learning? Not on file 03/11/2023 No 03/11/2023 No 03/11/2023 Digital Access Answer Date Recorded No 04/09/2023 No 04/09/2023 Reliable internet access at home? Not on file 04/09/2023 Device with a working camera? Not on file Sex and Gender Information Value Date Recorded Sex Assigned at Not on file Legal Sex Male 6:54 PM EST Gender Identity Not on file Sexual Orientation Not on file Occupation Industry Job Start Date Job End Date retired Not on file Not on file Not on file Last Filed Vital Signs Vital Sign Reading Time Taken Comments Blood Pressure 153/74 07/05/2023 3:03 PM EDT Pulse 69 07/05/2023 3:03 PM EDT Temperature 36.2 C (97.1 F) 07/05/2023 3:03 PM EDT Respiratory Rate 16 07/05/2023 3:03 PM EDT Oxygen Saturation 99% 07/05/2023 3:03 PM EDT Inhaled Oxygen Concentration - - Weight 108.9 kg (240 lb) 07/05/2023 3:03 PM EDT Height 182.9 cm (6') 06/24/2021 12:38 PM EDT Body Mass Index 32.55 06/24/2021 12:38 PM EDT Plan of Treatment Health Maintenance Due Date Last Done Comments HEMOGLOBIN A1C 1945 POTASSIUM LEVEL 1947 TSH LEVEL 1947 SMOKING Hx and SMOKELESS TOBACCO SCREENING 02/09/1960 HEPATITIS C SCREENING 1965 ZOSTER VACCINES (2 of 3) 12/22/2010 10/27/2010 DIABETIC EYE EXAM 01/03/2018 CREATININE LEVEL 02/04/2022 02/04/2021, , 01/30/2018 RSV VACCINE (1 - 1-dose 75+ series) 2022 BLOOD PRESSURE 01/05/2024 07/05/2023 DEPRESSION SCREENING 07/05/2024 07/05/2023 COVID-19 VACCINE ( season) 2024 08/09/2022, 03/09/2022, 09/01/2021, Additional history exists INFLUENZA VACCINE (#1) 2025 2, 09/01/2021, 09/14/2020, Additional history exists Adult Td,Tdap Booster 09/02/2026 09/02/2016 , 10/10/2006, 12/14/1995 PNEUMOCOCCAL VACCINES (50+ years) Completed 04/15/2015, 10/11/2012 HEPATITIS A VACCINES Aged Out No long er eligible based on patient's age to complete this topic HIB VACCINES Aged Out No longer eligi ble based on patient's age to complete this topic MENINGOCOCCAL VACCINES (ACWY) Aged Out No longer eligible based on patient's age to complete this topic MENINGOCOCCAL VACCINES (B) Aged Out N o longer eligible based on patient's age to complete this topic Medical Devices Not on file Procedures Procedure Name Priority Date/Time Associated Diagnosis Comments POCT CREATININE/EGFR Routine 02/04/2021 10:29 AM EDT from Last 3 Months or Most Recently Relevant to Health Maintenance Results * POCT Creatinine/eGFR (02/04/2021 10:29 AM EDT) CRE POC 0.8 0.5 - 1.2 mg/dL [facility] SU[facility] EGFR POC 89 >59 mL/min/1.7 3m[address] [facility] SU[facility] Comment:Estimated glomerular filtration rate calculated using the CKD-EPI equation. 02/04/2021 10:2 9 AM EDT 02/04/2021 10:31 AM EDT us Malik Mehta MD POINT OF CARE TEST ORDERABL ES Final Result [facility] [address] [place] [address] from Last 3 Months or Most Recently Relevant to Health Maintenance Insurance MEDICARE PART A & B [employer] [facility]ENSION MEDICARE SUPPLEMENT MEDICARE PART A & B [facility] MEDICARE SUPPLEMENT MEDICARE PART A & [facility] MEDICARE PART A & B [employer] MEDICARE SUPPLEMENT MEDICARE PART A & B [facility] MEDICARE SUPPLEMENT MEDICARE PART A & B [facility] MEDICARE SUPPLEMENT MEDICARE PART A & B [employer] EXTENSION MEDICARE SUPPLEMENT MEDICARE PART A & B [employer] EXTENSION MEDICARE SUPPLEMENT MEDICARE PART A & B [facility] EXTENSION MEDICARE SUPPLEMENT Care Teams Straight Cutter Relationship Specialty Start Date End Date Geoff Cota MD PCP - General 05/13/14 Additional Source Comments The information contained in this document represents components of the legal health record. It is not the complete legal health record.[facility]
== END 2025-07-29 11:02 | disposition home or self-care (01) ==
LOC: HO.HSM 10:37
PROVIDERS: PCP Internal Medicine; Referring Provider Internal Medicine; Visit Provider Psychiatry & Neurology Neurology
DX: B02.29 Other postherpetic nervous system involvement (principal); E11.9 Type 2 diabetes mellitus without complications
CPT/HCPCS: 99214

== ENCOUNTER → 2025-07-29 10:37 | Outpatient (BNVA) | payer MEDICARE, OTHER, SELFPAY | PROVIDERS: PCP Internal Medicine; Referring Provider Internal Medicine; Visit Provider Psychiatry & Neurology Neurology | DX: E11.9 Type 2 diabetes mellitus without complications (principal); B02.29 Other postherpetic nervous system involvement | CPT/HCPCS: 99212 ==